=== PATIENT | male | born 1960 | race Caucasian/White ===

== ENCOUNTER → 2017-09-15 | Outpatient (CLI) | payer OTHER ==
[~2017-09-15] MED LIST: ATEN1TAB74 PO; AUGM875T PO; DIAZ5TAB PO; PERC10TA27 PO
== END ==
LOC: CLAB 09:45
DX: K70.30 Alcoholic cirrhosis of liver without ascites (principal)
CPT/HCPCS: 36415; 82140

== ENCOUNTER 2017-09-19 07:57 | Day surgery (SDC) | payer OTHER ==
[2017-09-19 08:16] VITALS: BP 102/60; PULSE 66; RESP 16; TEMP 98.3; O2SAT 95
[2017-09-19] MEDS ORDERED: ALBUMIN 25% INJ 0 ML IV ONE (09:00)
[2017-09-19 09:25] VITALS: BP 125/72; PULSE 64; RESP 18; TEMP 97.6; O2SAT 97
[2017-09-19 09:40] VITALS: BP 123/73; PULSE 62; RESP 18; TEMP 97.6; O2SAT 95
[2017-09-19 10:02] LABS: TOTAL PROTEIN,PERITONEAL FLUID 1.2 GM/DL
[2017-09-19 10:51] LABS: PERITONEAL HISTIOCYTES 7 %; PERITONEAL LYMPHS 33 %; PERITONEAL MESOTHELIAL 33 %; PERITONEAL MONOS 20 %; PERITONEAL POLYS(SEGS) 7 %
[2017-09-19 10:53] LABS: PERITONEAL RBC 111 /MM3 (0-0)
--- NOTE | 2017-09-19 11:06 | RADRPT ---
EXAM DATE: 09/19/2017 9:20 AM EDT AGE/SEX: 57 years / Male INDICATIONS: Ascites. CLINICAL DATA: This is the patient's initial encounter. Patient reports that signs and symptoms have been present for 3 weeks and indicates a pain score of 2/10. MEDICAL/SURGICAL HISTORY: Cirrhosis. Hypertension. Head injury. Osteomyelitis. ETOH abuse. Anx iety. . Right arm incision and drainage. Hernia repair. COMPARISON: No prior exams available for comparison. FLUID: Total volume of 4,700 cc of clear, yellow fluid was removed. Fluid was sent to lab for ordered studie s. . . TECHNIQUE: Ultrasound guidance for abdominal paracentesis. Paracentesis. The risks, benefits, and alternatives to ultrasound guided paracentesis were explained to the patient in detail including the risk of bleeding and infection. Written and verbal informed consent was obt ained. With the patient on the ultrasound table, ultrasound imaging was used to select the most appropriate approach for paracentesis. Overlying skin was prepped and draped in the usual sterile fashion and wi th a local anesthetic, a dermatotomy was made with an 11 blade scalpel. A 6 Citizen Of [place] [id number] ca theter was introduced into the peritoneal cavity and fluid was collected. The patient tolerated the procedure well and left the ultrasound suite in stable condition. FINDINGS: Successful ultrasound-guided paracentesis as described above. CONCLUSION: 1. Successful ultrasound-guided paracentesis. Electronically signed by: Ezekiel Ayers MD 09/19/2017 11:05 AM EDT
[2017-09-19] MEDS ORDERED: LIDOCAINE HCL 1% PF 30 ML VIAL ONE (15:37)
== END 2017-09-19 10:01 | disposition home or self-care (01) ==
LOC: HRIP 07:57 → HRAD 07:57
DX: R18.8 Other ascites (principal); K74.60 Unspecified cirrhosis of liver; I10 Essential (primary) hypertension; F10.10 Alcohol abuse, uncomplicated; M86.9 Osteomyelitis, unspecified
CPT/HCPCS: 49083; 82042; 82945; 83615; 84157; 87070; 87205; 88112; 88305; 89051; C1729

== ENCOUNTER → 2017-09-28 | Outpatient (CLI) | payer OTHER | LOC: CLAB 09:01 | DX: K70.30 Alcoholic cirrhosis of liver without ascites (principal) | CPT/HCPCS: 36415; 82140 ==